=== PATIENT | female | born 1985 | race Caucasian/White ===

== ENCOUNTER → 2016-05-04 | Outpatient (REF) | payer BC ==
[~2016-05-04] MED LIST: MOTR200T44 PO; STUACAP PO; TYLE325T5 PO
== END ==
LOC: M LAB REF 13:05
PROVIDERS: ATTEND Physician Assistant Medical
DX: Z01.419 Encounter for gynecological examination (general) (routine) without abnormal findings (principal); N76.0 Acute vaginitis
CPT/HCPCS: 87070; 87077; 87186; 87491; 87591; G0123

== ENCOUNTER 2017-03-08 13:05 | Emergency (ER) | payer BC ==
[2017-03-08 15:14] LABS: HEMATOCRIT 39.1 % (36.0-47.0); HEMOGLOBIN 13.5 g/dl (12.0-16.0); MEAN CORPUSCULAR HEMOGLOBIN 29.6 pg (27.0-33.0); MEAN CORPUSCULAR HGB CONC 34.5 g/dl (32.0-36.5); MEAN CORPUSCULAR VOLUME 85.7 fl (80.0-96.0); PLATELET COUNT, AUTOMATED 260 10^3/uL (150-450); RED BLOOD COUNT 4.56 10^6/uL (4.00-5.40); RED CELL DISTRIBUTION WIDTH 12.9 % (11.5-14.5); WHITE BLOOD COUNT 6.9 10^3/uL (4.0-10.0)
[2017-03-08 15:47] LABS: HCG, SERUM QUANTITATIVE 39 MIU/ML
== END 2017-03-08 18:00 | disposition left against medical advice (07) ==
LOC: M ED 13:05
DX: O99.89 Other specified diseases and conditions complicating pregnancy, childbirth and the puerperium (principal); N93.9 Abnormal uterine and vaginal bleeding, unspecified; Z3A.00 Weeks of gestation of pregnancy not specified
CPT/HCPCS: 76801

== ENCOUNTER → 2017-03-10 | Outpatient (CLI) | payer BC ==
[2017-03-10 11:52] LABS: HCG, SERUM QUANTITATIVE 9 MIU/ML
== END ==
LOC: M LAB 10:45
DX: O02.1 Missed abortion (principal)
CPT/HCPCS: 84702

== ENCOUNTER → 2017-05-19 | Outpatient (REF) | payer BC ==
[2017-05-24 14:13] LABS: HPV HYBRID CAPTURE II Positive (Negative)
== END ==
LOC: M LAB REF 13:09
DX: N39.0 Urinary tract infection, site not specified (principal); Z11.51 Encounter for screening for human papillomavirus (HPV)
CPT/HCPCS: 87086

== ENCOUNTER → 2017-07-03 | Outpatient (REF) | payer BC ==
[2017-07-03 12:24] LABS: APPEARANCE, URINE HAZY (CLEAR); BACTERIA, URINE AUTO NEGATIVE (NEGATIVE); BILIRUBIN, URINE AUTO NEGATIVE (NEGATIVE); BLOOD, URINE BLOOD NEGATIVE (NEGATIVE); COLOR, URINE YELLOW (YELLOW); GLUCOSE, URINE (UA) AUTO NEGATIVE (NEGATIVE); KETONE, URINE AUTO NEGATIVE (NEGATIVE); LEUKOCYTE ESTERASE, URINE AUTO TRACE (NEGATIVE); MUCUS, URINE SMALL (NEGATIVE); NITRITE, URINE AUTO NEGATIVE (NEGATIVE); PROTEIN, URINE AUTO NEGATIVE (NEGATIVE); RBC, URINE AUTO 1 /HPF (0-3); SPECIFIC GRAVITY URINE AUTO 1.018 (1.002-1.035); SQUAMOUS EPITHELIAL CELL UR AU 4 /HPF (0-6); UROBILINOGEN, URINE AUTO 0.2 mg/dL (0.0-2.0); WBC, URINE AUTO 2 /HPF (0-3)
== END ==
LOC: M LABDRAWC 11:39
DX: N39.0 Urinary tract infection, site not specified (principal)

== ENCOUNTER → 2017-09-18 | Outpatient (CLI) | payer BC ==
[2017-09-18 13:09] LABS: BASO % 0.4 % (0.0-1.0); EOS # 0.2 10^3/uL (0.0-0.50); EOS % 2.9 % (0.0-3.0); HEMATOCRIT 37.3 % (36.0-47.0); HEMOGLOBIN 12.6 g/dl (12.0-15.5); IMMATURE GRANULOCYTE % 0.3 % (0-3.0); LYMPH # 1.5 10^3/uL (1.5-4.5); LYMPH % 20.5 % (24.0-44.0); MEAN CORPUSCULAR HEMOGLOBIN 29.6 pg (27.0-33.0); MEAN CORPUSCULAR HGB CONC 33.8 g/dl (32.0-36.5); MEAN CORPUSCULAR VOLUME 87.8 fl (80.0-96.0); MONO # 0.4 10^3/uL (0.0-0.8); MONO % 5.9 % (0.0-5.0); NEUTROPHILS # 5.3 10^3/uL (1.8-7.7); PLATELET COUNT, AUTOMATED 230 10^3/uL (150-450); RED BLOOD COUNT 4.25 10^6/uL (4.00-5.40); WHITE BLOOD COUNT 7.5 10^3/uL (4.0-10.0)
[2017-09-18 13:39] LABS: RUBELLA IgG QUALITATIVE IMMUNE (IMMUNE)
[2017-09-18 13:40] LABS: HBsAg Prenatal NEGATIVE (NEGATIVE)
[2017-09-18 14:57] LABS: CHLAMYDIA DNA AMPLIFICATION NEGATIVE (NEGATIVE); GC DNA AMPLIFICATION NEGATIVE (NEGATIVE)
[2017-09-18 15:28] LABS: HIV 1&2 SCREEN CENTAUR NEGATIVE (NEGATIVE)
[2017-09-18 15:28] LABS: HEPATITIS C VIRUS ABY INDEX 0.3 INDEX (<0.8)
== END ==
LOC: M SMT 08:30
DX: Z36.89 Encounter for other specified antenatal screening (principal); Z3A.09 9 weeks gestation of pregnancy
CPT/HCPCS: 86762

== ENCOUNTER → 2017-11-17 | Outpatient (REF) | payer OTHER | LOC: M LAB REF 12:54 | DX: Z34.82 Encounter for supervision of other normal pregnancy, second trimester (principal) ==

== ENCOUNTER → 2017-11-17 | Outpatient (CLI) | payer OTHER | LOC: M SMT 12:55 | DX: Z34.82 Encounter for supervision of other normal pregnancy, second trimester (principal); Z3A.18 18 weeks gestation of pregnancy | CPT/HCPCS: 76811 ==

== ENCOUNTER → 2017-12-29 | Outpatient (CLI) | payer OTHER | LOC: M SMT 12:54 | DX: Z36.89 Encounter for other specified antenatal screening (principal); Z3A.24 24 weeks gestation of pregnancy | CPT/HCPCS: 76816 ==

== ENCOUNTER → 2018-01-16 | Outpatient (CLI) | payer OTHER ==
[2018-01-16 11:34] LABS: HEMATOCRIT 34.3 % (36.0-47.0); HEMOGLOBIN 11.9 g/dl (12.0-15.5); MEAN CORPUSCULAR HEMOGLOBIN 31.1 pg (27.0-33.0); MEAN CORPUSCULAR HGB CONC 34.7 g/dl (32.0-36.5); MEAN CORPUSCULAR VOLUME 89.6 fl (80.0-96.0); PLATELET COUNT, AUTOMATED 233 10^3/uL (150-450); RED BLOOD COUNT 3.83 10^6/uL (4.00-5.40); RED CELL DISTRIBUTION WIDTH 13.2 % (11.5-14.5); WHITE BLOOD COUNT 10.6 10^3/uL (4.0-10.0)
[2018-01-16 11:56] LABS: GLUCOSE CHALLENGE TEST 1 HOUR 78 MG/DL (LESS THAN 140)
== END ==
LOC: M LAB 09:50
DX: Z34.82 Encounter for supervision of other normal pregnancy, second trimester (principal); Z3A.00 Weeks of gestation of pregnancy not specified
CPT/HCPCS: 82950

== ENCOUNTER → 2018-03-21 | Outpatient (REF) | payer OTHER ==
[~2018-03-21] MED LIST changes: +PREN1CHW4 PO
== END ==
LOC: M LAB REF 13:22
PROVIDERS: ATTEND Advanced Practice Midwife
DX: Z34.83 Encounter for supervision of other normal pregnancy, third trimester (principal)

== ENCOUNTER 2018-04-20 06:43 | Inpatient (IN) | payer OTHER ==
[~2018-04-20] VITALS: Ht 180.3 cm; Wt 90.5 kg
[2018-04-20] VITALS (32 sets, daily range): BP systolic 108–154; BP diastolic 58–83
[2018-04-20] MEDS ORDERED: LACTATED RINGER'S 1000 ML IV STA (07:55)
[2018-04-20] MEDS ORDERED: miSOPROStol 50 MCG 1/2 TAB (S0191) PO SCH (08:00)
--- NOTE | 2018-04-20 08:09 | HPEPDOC ---
Obstetrical History & Physical General Date of Admission Apr 20, 2018 at 06:43 History of Present Illness Chief Complaint: Induction of labor Information Provided By: Patient Age: 33 : 3 Term: 1 Pre-term: 0 Abortions: 1 Livin Care Care: Good Care Dating Final EDC: Apr 17, 2018 Final EDC by: LMP EGA at Admission: 40 (+3) Antepartum Course Height (inches): 71 Pre- weight (lbs.): 150 Admission Weight (lbs.): 201 Past Medical History Past Obstetrical History : Past Obstetrical History: Primgravida (04/2014) Type of Delivery: Spontaneous Vaginal Del. 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 Abnormal pap Vulvar varicosities Surgical History: Denies/None Family History Significant Family History: No pertinent family hx Social History Marital Status: Single Family situation: Spouse/partner home Psychosocial History: No pertinent psych hx * Smoker: non-smoker Alcohol: Denies Drugs: denies Imunizations Tdap status: current Allergies Coded Allergies: No Known Drug Allergy (Unverified Allergy, Unknown, NONE, 05/28/12) Medications Scheduled PRN Acetaminophen (Tylenol) 325 Mg Tab, 650 MG PO Q4HP PRN for PAIN Ibuprofen (Motrin Ib) 200 Mg Tab, 800 MG PO Q8HP PRN for PAIN SCALE 6-10 Miscellaneous Medications Multivitamins/ ( Gummies/Dha & Fo 0.4-32.5 mg) 1 Chw Chw, 1 CHW PO Physical Examination Physical Examination GENERAL: Alert and oriented times three. BREAST: . ABDOMEN: Gravid and non-tender to touch. FETUS: Is vertex (VTX) by sterile vaginal examination (SVE), fetus is vertex (VTX) by Khris. HEART RATE: Regular rate and rhythm. LUNGS: Clear to auscultation (CTA). EXTREMITIES: No edema. No clonus. Deep tendon reflexes (DTRs) + 2 Laboratory Data 24H LABS Laboratory Tests 2 04/20/18 06:53: Serology Scanned Report Hepatitis B Testing Pertinent Laboratoy Data Blood Type: A+ RBC Antibody Screen: Negative HIV: Negative Hepatitis B: Negative Hepatitis C: Negative Rapid Plasma Reagin: Nonreactive Rubella: Immune Chlamydia/Gonorrhea: Negative Group B Streptococcus: Negative Quad Screen Test: Declined Glucose Tolerance Test: 78 Anatomy Ultrasound Ultrasound Date: Nov 17, 2017 Placenta Location: Anterior Normal Anatomy: Yes Placenta Previa: No Estimated Weight (grams): 233 Other Ultrasounds 09/18/17 dating 9w4d + FH 12/29/17 f/u anatomy Steroid Therapy Steroid Therapy: No Vaginal Examination Dilation: 2cm (-3) Effacement: 80% Station: -2 Cervical Consistency: Medium Cervical Position: Posterior Presentation: Cephalic presentation Assessment Heart Rate (FHR): 150 Variability: Moderate Accelerations: Positive Decelerations: None Tocometer Frequency: irregular Strength: palpated as mild Assessment/Plan Assessment Brenda is a 33-year-old (G)3 para (P)1-0-1-1 at 40+3 weeks by 9-week ultrasound. Presents to Labor and Delivery (L&D) per consult Dr Fu for induction of labor at term. Reports irregular mild UC. Denies LOF or bleeding. Fetus is active. 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 Diet: Regular. Group B Streptococcus (GBS) negative Labs and intravenous (IV) per unit protocol. Counseled on misoprostol, Pitocin and induction of labor (IOL). Lactated Ringers (LR): Bolus 500 mL, then saline lock. Pt is planning epidural for labor coping Anticipate normal spontaneous delivery () C-S as appropriate. Chanell Silver CNM Apr 20, 2018 08:09
[2018-04-20 08:42] LABS: HEMATOCRIT 35.5 % (36.0-47.0); MEAN CORPUSCULAR HEMOGLOBIN 30.2 pg (27.0-33.0); MEAN CORPUSCULAR HGB CONC 33.8 g/dl (32.0-36.5); MEAN CORPUSCULAR VOLUME 89.2 fl (80.0-96.0); PLATELET COUNT, AUTOMATED 240 10^3/uL (150-450); RED BLOOD COUNT 3.98 10^6/uL (4.00-5.40); WHITE BLOOD COUNT 9.3 10^3/uL (4.0-10.0)
--- NOTE | 2018-04-20 13:44 | IPNPDOC ---
Text Note Date of Service The patient was seen on 04/20/18. NOTE Becoming uncomfortable UC 2-3 minuts apart x 45-60 seconds FH 145, Cat I SVE /-2 + bloody show Start pitocin VS,Fishbone, I+O VS, Fishbone, I+O Laboratory Tests 04/20/18 08:09 Red Blood Count 3.98 L, Mean Corpuscular Volume 89.2, Mean Corpuscular Hemoglobin 30.2, Mean Corpuscular Hemoglobin Concent 33.8, Red Cell Distribution Width 12.5 Chanell Silver CNM Apr 20, 2018 13:44
[2018-04-20] MEDS ORDERED: OXYTOCIN DRIP 30 UNITS in APPROPRIATE DILUENT 1 EA IV SCH (14:00)
[2018-04-20] MEDS: LR 1,000 ML IV SCH ×2 (14:01→16:45)
[2018-04-20] MEDS ORDERED: FENTANYL 2MCG/ML ROPIVACAINE 0.2% IN 0.9% NACL 100ML IVBAG As Ordered ONE (16:23)
--- NOTE | 2018-04-20 17:16 | IPNPDOC ---
Text Note Date of Service The patient was seen on 04/20/18. NOTE Epidural is setting up Pitocin @ 2mu UC Q 2minutes x 60 seconds, moderate FH 145, Cat I SVE /-1 Consider AROM VS,Fishbone, I+O VS, Fishbone, I+O Laboratory Tests 04/20/18 08:09 Red Blood Count 3.98 L, Mean Corpuscular Volume 89.2, Mean Corpuscular Hemoglobin 30.2, Mean Corpuscular Hemoglobin Concent 33.8, Red Cell Distribution Width 12.5 Vital Signs Date Time Temp Pulse Resp B/P (MAP) Pulse Ox O2 Delivery O2 Flow Rate FiO2 04/20/18 16:38 77 18 119/71 (87) 04/20/18 13:36 98.3 Chanell Silver CNM Apr 20, 2018 17:15
[2018-04-20] MEDS ORDERED: EPIDURAL COMMENT XX SCH (17:45)
[2018-04-20] MEDS ORDERED: diphenhydrAMINE INJ 50MG/ML VIAL (J1200) IV PRN (17:45)
[2018-04-20] MEDS ORDERED: ePHEDrine SULFATE 25 MG/5 ML(5MG/ML) SYRINGE IV PRN (17:45)
[2018-04-20] MEDS ORDERED: FENTANYL/ROPIVACAINE/NACL BAG 100 ML EPIDURAL SCH (17:45)
[2018-04-20] MEDS ORDERED: ONDANSETRON 4MG/2ML VIAL (J2405) IV PRN (17:45)
[2018-04-20] MEDS ORDERED: REFRIGERATOR IV KEYS XX PRN (17:45)
[2018-04-20] MEDS ORDERED: NALOXONE INJ 0.4 MG/1 ML VIAL (J2310) IV PRN (17:45)
[2018-04-20] MEDS ORDERED: LACTATED RINGER'S 1000 ML IV PRN (17:45)
[2018-04-20] MEDS ORDERED: EPIDURAL/PCA KEYS XX PRN (17:45)
[2018-04-20 20:40] LABS: CORD GAS ABE V -7.7; CORD GAS HCO3 A 20.1 MEQ/L; CORD GAS HCO3 V 18.8 MEQ/L; CORD GAS O2 SAT A 75.5 %; CORD GAS O2 SAT V 77.2 %; CORD GAS PCO2 A 45.8 mmHg; CORD GAS PCO2 V 41.7 mmHg; CORD GAS PH A 7.26 UNITS; CORD GAS PH V 7.272 UNITS; CORD GAS PO2 A 36.7 mmHg; CORD GAS SBC A 18.3 MEQ/L; CORD GAS SBC V 17.9 MEQ/L; CORD GAS TCO2 A 21.5 MEQ/L; CORD GAS TCO2 V 20.1 MEQ/L
[2018-04-20] MEDS ORDERED: ANUSOL HC CREAM 30GM TOP PRN (21:00)
[2018-04-20] MEDS ORDERED: DIBUCAINE 1% OINTMENT 30GM TOP PRN (21:00)
[2018-04-20] MEDS ORDERED: DOCUSATE SODIUM 100 MG CAP PO PRN (21:00)
[2018-04-20] MEDS ORDERED: MOM 30ML SUSPENSION UDC PO PRN (21:00)
[2018-04-20] MEDS ORDERED: RHOGAM 300 MCG (1500 IU) INJ (J2790) IM SCH (21:00)
[2018-04-20] MEDS ORDERED: MEASLES,MUMPS,RUBELLA VACCINE INJ (MMR-II) (90707) SC SCH (21:00)
[2018-04-20] MEDS ORDERED: miSOPROStol 200 MCG TAB (S0191) PR ONE (21:00)
[2018-04-20] MEDS ORDERED: ACETAMINOPHEN 500 MG TAB PO PRN (21:00)
[2018-04-20] MEDS ORDERED: IBUPROFEN 800 MG TAB PO PRN (21:00)
--- NOTE | 2018-04-20 21:10 | DNPDOC ---
[facility] Delivery Note Delivery Note DATE OF DELIVERY: 04/20/18 PREDELIVERY DIAGNOSIS: 40-3/7 weeks' gestation and labor. POST DELIVERY DIAGNOSIS: Delivered. PROCEDURE: Spontaneous vaginal delivery. PROVIDER: Chanell Silver CNM ANESTHESIA: Epidural. ESTIMATED BLOOD LOSS: 500 mL. FINDINGS: 9 pound 11 ounce, 4380gm female , Score 9/9, occult cord around shoulder and body. DELIVERY SUMMARY: Patient is a 33-year-old 3 now para 2-0-1-2 who was admitted to labor and delivery for elective induction of labor. She received misoprostol 50mcg orally once resulting in onset of contractions. Pitocin augmentation was provided. She utilized an epidural for labor coping. AROM large amount thin meconium stained fluid @ 1856. Fully dilated 1940. Viable female child delivered direct OP with occult loop of cord around shoulder and body @ 2021 without difficulty. Mouth and nose were bulb suctioned prior to delivery of shoulders. Spontaneous respirations with stimulation, transitioned on maternal abdomen for approximately 1 minute when cord was doubly clamped and cut by FOB under my direction. then to warmer for further suctioning and evaluation. Apgars 9/9. Cord gases arterial 7.260 with BE -7.0 and venous 7.272 with BE - 7.7. Placenta avendaño with long trailing membranes @ 2031. Inspection of placenta showed circumvallata placenta, intact. Fundus firmed with massage and IV pitocin bolus. Misoprostol 1000mcg OH given due to large amount of trailing membranes. E BL 500ml. 2nd degree perineal laceration repaired with 3-0 vicryl in layers. Sponge, sharp and instrument count correct. Infant wt 4380gm, 9#11oz. Chanell Silver CNM Apr 20, 2018 21:10
[2018-04-20] MEDS: METHYLERGONOVINE MALEATE 0.2 MG TAB PO SCH (21:15)
[2018-04-21] MEDS: METHYLERGONOVINE MALEATE 0.2 MG TAB PO SCH ×3 (03:07→14:49)
--- NOTE | 2018-04-21 06:41 | IPNPDOC ---
Text Note Date of Service The patient was seen on 04/21/18. NOTE PP #1 Feels well. Breast feeding. Voiding. Reports loose stool x 1 Vss, afebrile, normotensive Breasts soft, nipples intact Fundus firm, NT, down 1 FB Lochia rubra light without odor Perineum well approximated without edema PP #1 Routine care, precautions. Anticipate D/C in am VS,Fishbone, I+O VS, Fishbone, I+O Laboratory Tests 04/20/18 08:09 Red Blood Count 3.98 L, Mean Corpuscular Volume 89.2, Mean Corpuscular Hemoglobin 30.2, Mean Corpuscular Hemoglobin Concent 33.8, Red Cell Distribution Width 12.5 Vital Signs Date Time Temp Pulse Resp B/P (MAP) Pulse Ox O2 Delivery O2 Flow Rate FiO2 04/20/18 23:10 98.6 96 18 125/64 (84) I&O- Last 24 Hours up to 6 AM 04/21/18 06:00 Intake Total 2318 ml Output Total 1400 ml Balance 918 ml Chanell Silver CNM Apr 21, 2018 06:41
[2018-04-21] MEDS ORDERED: LOPERAMIDE 2 MG CAP PO PRN (06:45)
[2018-04-21 06:47] VITALS: BP 142/58
[2018-04-21] MEDS: PRENATAL VITAMINS CHEWABLE TABLET PO SCH (08:27)
[2018-04-21 18:00] VITALS: BP 117/73
[2018-04-21] MEDS ORDERED: METHYLERGONOVINE MALEATE 0.2 MG TAB PO PRN (21:00)
[2018-04-22 05:49] VITALS: BP 120/73
[2018-04-22] MEDS: PRENATAL VITAMINS CHEWABLE TABLET PO SCH (08:51)
[2018-04-22] MEDS ORDERED: MAPA500T2 PO (09:59)
[2018-04-22] MEDS ORDERED: COLA100C5 PO (09:59)
[2018-04-22] MEDS ORDERED: MOM30SS PO (10:31)
== END 2018-04-22 13:15 | disposition home or self-care (01) | DRG 560 ==
LOC: M LDI 06:43 → M OBS 23:10
PROVIDERS: ADMIT Specialist; ATTEND Advanced Practice Midwife
PROC: 10E0XZZ Delivery of Products of Conception, External Approach (ICD-10-PCS; principal; 2018-04-20)
PROC: 0KQM0ZZ Repair Perineum Muscle, Open Approach (ICD-10-PCS; 2018-04-20)
PROC: 10907ZC Drainage of Amniotic Fluid, Therapeutic from Products of Conception, Via Natural or Artificial Opening (ICD-10-PCS; 2018-04-20)
PROC: 3E0P7GC Introduction of Other Therapeutic Substance into Female Reproductive, Via Natural or Artificial Opening (ICD-10-PCS; 2018-04-20)
DX: O48.0 Post-term pregnancy (principal); O69.82X0 Labor and delivery complicated by other cord entanglement, without compression, not applicable or unspecified; Z3A.40 40 weeks gestation of pregnancy; O70.1 Second degree perineal laceration during delivery; Z37.0 Single live birth

== ENCOUNTER → 2018-05-28 | Outpatient (REF) | payer OTHER ==
[~2018-05-28] MED LIST changes: +COLA100C5 PO; +MAPA500T2 PO; +MOM30SS PO
== END ==
LOC: M LAB REF 16:57
PROVIDERS: ATTEND Physician Assistant
DX: R35.0 Frequency of micturition (principal)

== ENCOUNTER → 2018-06-20 | Outpatient (REF) | payer OTHER ==
[2018-06-27 14:11] LABS: HPV HYBRID CAPTURE II Positive (Negative)
== END ==
LOC: M LAB REF 14:30
PROVIDERS: ATTEND Advanced Practice Midwife
DX: Z12.4 Encounter for screening for malignant neoplasm of cervix (principal)

== ENCOUNTER → 2018-08-07 | Outpatient (REF) | payer OTHER | LOC: M LAB REF 17:42 | PROVIDERS: ATTEND Specialist | DX: N87.1 Moderate cervical dysplasia (principal); R87.810 Cervical high risk human papillomavirus (HPV) DNA test positive ==

== ENCOUNTER → 2018-09-28 | Outpatient (REF) | payer OTHER | LOC: M LAB REF 17:03 | PROVIDERS: ATTEND Specialist | DX: R87.613 High grade squamous intraepithelial lesion on cytologic smear of cervix (HGSIL) (principal) ==

== ENCOUNTER → 2019-03-08 | Outpatient (CLI) | payer OTHER ==
[2019-03-08 12:08] LABS: BASO % 0.3 % (0.0-1.0); EOS # 0.3 10^3/uL (0.0-0.5); HEMATOCRIT 40.6 % (36.0-47.0); HEMOGLOBIN 13.7 g/dl (12.0-15.5); LYMPH # 1.5 10^3/uL (1.5-5.0); LYMPH % 23.5 % (24.0-44.0); MEAN CORPUSCULAR HEMOGLOBIN 29.2 pg (27.0-33.0); MEAN CORPUSCULAR HGB CONC 33.7 g/dl (32.0-36.5); MEAN CORPUSCULAR VOLUME 86.6 fl (80.0-96.0); MONO # 0.6 10^3/uL (0.0-0.8); MONO % 9.1 % (0.0-5.0); NEUTROPHILS # 3.9 10^3/uL (1.5-8.5); NEUTROPHILS % 61.6 % (36.0-66.0); PLATELET COUNT, AUTOMATED 259 10^3/uL (150-450); RED BLOOD COUNT 4.69 10^6/uL (4.00-5.40); WHITE BLOOD COUNT 6.4 10^3/uL (4.0-10.0)
[2019-03-08 13:46] LABS: HEPATITIS C VIRUS ABY INDEX < 0.0 INDEX (<0.8); HIV 1&2 SCREEN CENTAUR NEGATIVE (NEGATIVE); RUBELLA IgG QUALITATIVE IMMUNE (IMMUNE)
[2019-03-09 14:31] LABS: CHLAMYDIA DNA AMPLIFICATION NEGATIVE (NEGATIVE); GC DNA AMPLIFICATION NEGATIVE (NEGATIVE)
== END ==
LOC: M PLALAB 09:28
PROVIDERS: ATTEND Advanced Practice Midwife
DX: Z36.89 Encounter for other specified antenatal screening (principal)

== ENCOUNTER → 2019-05-10 | Outpatient (CLI) | payer OTHER ==
--- NOTE | 2019-05-10 09:47 | REP ---
OB ULTRASOUND: Real-time sonographic evaluation of the gravid uterus performed. There is a single living intrauterine gestation. The estimated gestational age based on today's ultrasound measurements is 18 weeks 2 days EDC 10/09/2019. Biometry and Growth: BPD 42 mm = 18 weeks 4 days HC 149 mm = 18 weeks 0 days AC 131 mm = 18 weeks 4 days FL 27 mm = 18 weeks 1 day HC/AC ratio 1.14 within normal range. Estimated weight 237 grams, 52nd percentile. SEEN/GROSSLY UNREMARKABLE Lateral ventricles Yes Posterior fossa Yes Upper lip Yes Four-chamber heart Yes LVOT Yes RVOT Yes Stomach Yes Cord insertion Yes Three vessel cord Yes Kidneys Yes Bladder Yes Spine No Cervical length: Closed and measures 3.2 cm in length. heart rate: 143 beats per minute. position: Variable. Placenta: On the left and grade 1 with no previa or abruption. Amniotic fluid: Within normal limits.
== END ==
LOC: M WHC 07:53
PROVIDERS: ATTEND Advanced Practice Midwife
DX: Z34.81 Encounter for supervision of other normal pregnancy, first trimester (principal); Z3A.18 18 weeks gestation of pregnancy

== ENCOUNTER → 2019-06-12 | Outpatient (CLI) | payer OTHER ==
--- NOTE | 2019-06-12 18:08 | REP ---
Clinical: Anatomical evaluation. Comparison: 05/10/2019 . Findings: Examination demonstrates a single live intrauterine in cephalic presentation. motion is identified by technologist. Placenta is noted anterior and grade I without evidence for placenta previa or abruption. Amniotic fluid volume is normal. Cervix measures 3.4 cm in length and appears closed. No evidence for nuchal cord. Gestational age by LMP 23 weeks 0 days with MO 10/09/2019 . Gestational age by current measurements 22 weeks for the with MO 10/12/2019 . FHR equals 158 beats per minute. BPD 5.5 cm 22 weeks 5 days HC 20.0 cm 22 weeks 6 days AC 18.5 cm 23 weeks 2 days FL 4.0 cm 23 weeks 0 days HL 3.7 cm 22 weeks 6 days HC/AC ratio 1.12 Estimated weight 563 grams ( 50th percentile). Anatomical assessment demonstrates normal structures including cranium, facial features, lungs, four-chamber heart/ventricular outflow tracts, diaphragm, stomach, cord insertion/three-vessel cord, kidneys/bladder, and spine. Impression: 1. A single live intrauterine in cephalic presentation demonstrating appropriate interval growth. 2. Limited evaluation of the cord plexus, cavum, posterior fossa, and extremities. Remainder of the anatomical assessment is complete and normal.
== END ==
LOC: M WHC 07:38
PROVIDERS: ATTEND Advanced Practice Midwife
DX: Z34.82 Encounter for supervision of other normal pregnancy, second trimester (principal)

== ENCOUNTER → 2019-07-04 | Outpatient (REF) | payer OTHER ==
[2019-07-04 11:31] LABS: HEMATOCRIT 33.9 % (36.0-47.0); HEMOGLOBIN 11.6 g/dl (12.0-15.5); MEAN CORPUSCULAR HEMOGLOBIN 30.9 pg (27.0-33.0); MEAN CORPUSCULAR HGB CONC 34.2 g/dl (32.0-36.5); MEAN CORPUSCULAR VOLUME 90.2 fl (80.0-96.0); PLATELET COUNT, AUTOMATED 228 10^3/uL (150-450); RED BLOOD COUNT 3.76 10^6/uL (4.00-5.40); WHITE BLOOD COUNT 9.1 10^3/uL (4.0-10.0)
== END ==
LOC: M PLALAB 08:14
PROVIDERS: ATTEND Advanced Practice Midwife
DX: Z34.82 Encounter for supervision of other normal pregnancy, second trimester (principal)

== ENCOUNTER → 2019-08-30 | Outpatient (REF) | payer OTHER | LOC: M SFHCWAGY 17:19 | PROVIDERS: ATTEND Advanced Practice Midwife | DX: O22.03 Varicose veins of lower extremity in pregnancy, third trimester (principal) ==

== ENCOUNTER → 2019-09-17 | Outpatient (CLI) | payer OTHER ==
[~2019-09-17] MED LIST changes: +TERBUTALINE SULFATE 1 MG/ML VIAL (J3105) As Ordered ONE
== END ==
LOC: M LDO 11:30
PROVIDERS: ATTEND Obstetrics & Gynecology
DX: O32.1XX0 Maternal care for breech presentation, not applicable or unspecified (principal); O47.1 False labor at or after 37 completed weeks of gestation; O99.353 Diseases of the nervous system complicating pregnancy, third trimester; Z3A.37 37 weeks gestation of pregnancy
CPT/HCPCS: 59025; 59412; 76815; 96372; J3105

== ENCOUNTER 2019-09-29 06:30 | Inpatient (IN) | payer OTHER ==
[~2019-09-29 06:30] MED LIST changes: +LIDOCAINE 1% MDV 20ML VIAL As Ordered ONE; +LIDOCAINE 1% MDV 20ML VIAL ONE; -TERBUTALINE SULFATE 1 MG/ML VIAL (J3105) As Ordered ONE
[2019-09-29] MEDS ORDERED: IBUPROFEN 800 MG TAB ONE (06:34)
[2019-09-29] MEDS ORDERED: IBUPROFEN 800 MG TAB As Ordered ONE (06:34)
[2019-09-29] MEDS ORDERED: ACETAMINOPHEN 500 MG TAB As Ordered ONE (15:19)
[2019-09-29] MEDS ORDERED: ACETAMINOPHEN 500 MG TAB ONE (15:19)
[2019-09-30] MEDS ORDERED: ANUSOL HC CREAM 30GM ONE ×2 (08:41)
[2019-09-30] MEDS ORDERED: IBUPROFEN 800 MG TAB ONE ×3 (08:41→18:03)
[2019-09-30] MEDS ORDERED: ACETAMINOPHEN 500 MG TAB ONE (18:03)
[2019-09-30] MEDS ORDERED: IBUPROFEN 800 MG TAB As Ordered ONE (18:03)
[2019-10-01] MEDS ORDERED: ACETAMINOPHEN 500 MG TAB As Ordered ONE (06:08)
[2019-10-01] MEDS ORDERED: OXYTOCIN 30 UNITS IN 0.9% NaCl 500ML IV BAG (J2590) ONE (08:49)
[2019-10-01] MEDS ORDERED: OXYTOCIN 30 UNITS IN 0.9% NaCl 500ML IV BAG (J2590) As Ordered ONE (08:49)
[2019-11-15 18:21] LABS: HEMATOCRIT 34.9 % (36.0-47.0); HEMOGLOBIN 11.7 g/dl (12.0-15.5); MEAN CORPUSCULAR HEMOGLOBIN 29.6 pg (27.0-33.0); MEAN CORPUSCULAR HGB CONC 33.5 g/dl (32.0-36.5); MEAN CORPUSCULAR VOLUME 88.4 fl (80.0-96.0); PLATELET COUNT, AUTOMATED 167 10^3/uL (150-450); RED BLOOD COUNT 3.95 10^6/uL (4.00-5.40); WHITE BLOOD COUNT 10.8 10^3/uL (4.0-10.0)
--- NOTE | 2019-11-28 15:46 | DN ---
GENDER: Male APGARS: 8 and 9. PREDELIVERY DIAGNOSIS: Term labor. POSTDELIVERY DIAGNOSIS: Delivered. PROCEDURE PERFORMED: Spontaneous vaginal delivery. SURGEON: Ney Shankar MD ANESTHESIA: None. ESTIMATED BLOOD LOSS: 300 mL. FINDINGS: 9 pound 1 ounce male with Apgars 8 and 9. DESCRIPTION OF DELIVERY: Patient presented to the labor floor at 10 cm dilated. She had artificial rupture of membranes. Approximately three minutes later, she had spontaneous delivery of a 9 pound 1 ounce male with Apgars 8 and 9 with no delivery of anesthesia. No nuchal cord. Shoulders were delivered with ease. The baby was handed to the mother. The cord was double clamped and cut. The placenta was delivered spontaneously and appeared to be intact. Patient received IV Pitocin for delivery of the placenta. A small second-degree perineal laceration was repaired with 2-0 Chromic under local in the usual fashion. Sponge and needle counts were correct. MTDD
== END 2019-10-01 12:29 | disposition home or self-care (01) | DRG 560 ==
LOC: M LDI 06:30
PROVIDERS: ADMIT Specialist; ATTEND Specialist
PROC: 10E0XZZ Delivery of Products of Conception, External Approach (ICD-10-PCS; principal; 2019-09-29)
PROC: 10907ZC Drainage of Amniotic Fluid, Therapeutic from Products of Conception, Via Natural or Artificial Opening (ICD-10-PCS; 2019-09-29)
PROC: 0KQM0ZZ Repair Perineum Muscle, Open Approach (ICD-10-PCS; 2019-09-29)
DX: O70.1 Second degree perineal laceration during delivery (principal); Z37.0 Single live birth; Z3A.38 38 weeks gestation of pregnancy

== ENCOUNTER → 2020-08-07 | Outpatient (REF) | payer OTHER ==
[~2020-08-07] MED LIST changes: -LIDOCAINE 1% MDV 20ML VIAL As Ordered ONE; -LIDOCAINE 1% MDV 20ML VIAL ONE
== END ==
LOC: M SFHCWAGY 10:14
PROVIDERS: ATTEND Specialist
DX: Z12.4 Encounter for screening for malignant neoplasm of cervix (principal); R87.610 Atypical squamous cells of undetermined significance on cytologic smear of cervix (ASC-US)

== ENCOUNTER → 2020-12-23 | Outpatient (REF) | payer OTHER | LOC: M SFHCPLAZ 17:19 | PROVIDERS: ATTEND Physician Assistant | DX: R09.89 Other specified symptoms and signs involving the circulatory and respiratory systems (principal) ==

== ENCOUNTER → 2023-04-11 | Outpatient (REF) | payer OTHER | LOC: M SFHCCLAY 17:08 | PROVIDERS: ATTEND Physician Assistant | DX: J02.9 Acute pharyngitis, unspecified (principal) ==

== ENCOUNTER → 2023-04-28 | Outpatient (REF) | payer OTHER | LOC: M SFHCCLAY 11:49 | PROVIDERS: ATTEND Physician Assistant | DX: J02.9 Acute pharyngitis, unspecified (principal) ==